=== PATIENT | male | born 1955 | race Caucasian/White ===

== ENCOUNTER 2020-07-09 07:20 | Emergency (ER) | payer MEDICARE, OTHER ==
[~2020-07-09 07:20] MED LIST: NORCO 5-325 TA1 EACH PO
[2020-07-09 08:12] LABS: HEMOGLOBIN 15.5 gm/dl (14.0-17.5); RED BLOOD COUNT 4.86 M/UL (4.20-5.50); WHITE BLOOD COUNT 8.6 K/UL (4.5-11.0)
[2020-07-09 08:38] LABS: BUN/CREATININE RATIO 21 (0-10)
[2020-07-09] MEDS ORDERED: BACTRIM DS TAB1 EACH PO (09:04)
[2020-07-09] MEDS ORDERED: CEPHALEXIN500 MG PO (09:04)
== END 2020-07-09 10:03 | disposition home or self-care (01) ==
LOC: ER1 07:20
PROVIDERS: Emergency Medicine
DX: L03.114 Cellulitis of left upper limb (principal); I10 Essential (primary) hypertension; F17.210 Nicotine dependence, cigarettes, uncomplicated
CPT/HCPCS: 36415; 73080; 80053; 85025; 96365; 99283; J0696